=== PATIENT | female | born 1990 | race Caucasian/White ===

== ENCOUNTER 2017-10-05 05:41 | Inpatient (IN) ==
--- NOTE | 2017-10-04 21:31 | P.HPOB ---
History of Present Illness Service: Obstetrics Primary Care Physician: UNKNOWN Chief Complaint: scheduled primary for breech History of Present Illness: 26 yo G1 with de leon male IUP, EDC 10/12/17, admit 10/05/17 for scheduled due to breech presentation. Patient has had uncomplicated , GBS negative, normal anatomy, negative quad screen. Pain 2/10 mild pelvic pain and pressure. No LOF no VB. Endorses good FM. Weeks Gestation:: 39 Para: 0 : 1 Total # of Miscarriage(s): 0 Total # of Abortions (Spontaneous & Elective): 0 - Inpatient Certification I certify that the inpatient services were ordered in accordance with Medicare regulations governing the order. This includes certification that hospital inpatient services are reasonable and necessary and in the case of services not specified as inpatient-only under 42 CFR 419.22(n), that they are appropriately provided as inpatient services in accordance to with the 2-midnight benchmark under 43 CFR 412.3(e) Estimated Total Length of Stay (Days): 4 Plans for Post Hospital Care: Home Review of Systems All other systems reviewed negative except as stated in HPI PMFSH - Medical / Surgical Hx Neg / Unobtainable Medical Problems Denied: Yes Surgical History: No Previous Surgery - Family History Family History: Family History (Last Updated 10/04/17 @ 21:26 by Jacqueline Head MD) Other No significant family history - Tobacco History Second Hand Smoke Exposure: No Tobacco Use In Past 30 Days: No Smoking Status: Never smoker Medications and Allergies Allergies Allergy/AdvReac Type Severity Reaction Status Date / Time No Known Allergies Allergy Unverified 10/04/17 21:27 Exam - Constitutional no acute distress - Routine HEENT Exam Head: Present: normocephalic, atraumatic Eye: Present: EOMI, PERRL ENT: Present: mucous membranes moist - Routine Neck Exam Present: supple, full ROM - Routine Chest/Breast/Axilla Exam Chest wall: Absent: tenderness, mass - Routine Respiratory Exam Absent: accessory muscle use, respiratory distress - Routine Cardiovascular Exam Present: RRR. Absent: murmur - Routine Abdominal Exam Absent: tenderness Comments: size c/w dates - Routine Extremities Exam Absent: cyanosis, clubbing - Routine Skin Exam Present: intact. Absent: cyanosis - Routine Neurological Exam Present: alert, oriented X3 Results - Labs Group B Strep: Negative Caprini VTE Risk Assessment Caprini VTE Risk Assessment: No/Low Risk (score <= 1) VTE Pharmacological Exception Reason: Epidural catheter Caprini Risk Assessment Model: Point Value = 1 Point Value = 2 Point Value = 3 Point Value = 5 Age 41-60 Minor surgery BMI > 25 kg/m2 Swollen legs Varicose veins or History of unexplained or recurrent spontaneous Oral contraceptives or hormone replacement Sepsis (< 1 month) Serious lung disease, including pneumonia (< 1 month) Abnormal pulmonary function Acute myocardial infarction Congestive heart failure (< 1 month) History of inflammatory bowel disease Medical patient at bed rest Age 61-74 Arthroscopic surgery Major open surgery (> 45 min) Laparoscopic surgery (> 45 min) Malignancy Confined to bed (> 72 hours) Immobilizing plaster cast Central venous access Age >= 75 History of VTE Family history of VTE Factor V Leiden Prothrombin [id number] Lupus anticoagulant Anticardiolipin antibodies Elevated serum homocysteine Heparin-induced thrombocytopenia Other congenital or acquired thrombophilia Stroke (< 1 month) Elective arthroplasty Hip, pelvis, or leg fracture Acute spinal cord injury (< 1 month) Prophylaxis Regimen: Total Risk Factor Score Risk Level Prophylaxis Regimen 0-1 Low Early ambulation 2 Moderate Order ONE of the following: *Sequential Compression Device (SCD) *Heparin 5000 units SQ BID 3-4 Higher Order ONE of the following medications: *Heparin 5000 units SQ TID *Enoxaparin/Lovenox 40 mg SQ daily (WT < 150 kg, CrCl > 30 mL/min) *Enoxaparin/Lovenox 30 mg SQ daily (WT < 150 kg, CrCl > 10-29 mL/min) *Enoxaparin/Lovenox 30 mg SQ BID (WT < 150 kg, CrCl > 30 mL/min) AND/OR *Sequential Compression Device (SCD) 5 or more Highest Order ONE of the following medications: *Heparin 5000 units SQ TID (Preferred with Epidurals) *Enoxaparin/Lovenox 40 mg SQ daily (WT < 150 kg, CrCl > 30 mL/min) *Enoxaparin/Lovenox 30 mg SQ daily (WT < 150 kg, CrCl > 10-29 mL/min) *Enoxaparin/Lovenox 30 mg SQ BID (WT < 150 kg, CrCl > 30 mL/min) AND *Sequential Compression Device (SCD) Assessment and Plan - Diagnosis (1) Breech presentation Code(s): O32.1XX0 - Maternal care for breech presentation, not applicable or unspecified Status: Acute (2) Code(s): Z34.90 - Encounter for supervision of normal , unspecified, unspecified trimester Status: Acute - Plan 26 yo G1 with de leon male IUP at 39 wks, EDC 10/12/17, admit for scheduled due to breech. 1) breech, for primary CD: r/b/a of procedure d/w pt, AQA, consents signed; declines option of attempt at external cephalic version 2) GBS neg 3) status: AGA, male , breech 4) dispo: anticipate d/c to home 2-3 postop days (1) Breech presentation Qualifiers: Fetus number: single or unspecified fetus Qualified Code(s): O32.1XX0 - Maternal care for breech presentation, not applicable or unspecified (2) Qualifiers: Weeks of gestation: 39 weeks Qualified Code(s): Z3A.39 - 39 weeks gestation of
[2017-10-05] MEDS ORDERED: Citric Acid/Sodium Citrate Liq 30 ML UDC PO SCH (06:30)
[2017-10-05 06:35] LABS: Baso % (Auto) 0.3 % (0.0-2.0); Eos # (Auto) 0.1 th/mm3 (0.0-0.4); Eos % (Auto) 1.4 % (0.0-4.0); Hematocrit 37.2 % (35.0-46.0); Hemoglobin 12.4 gm/dL (11.6-15.3); Lymph # (Auto) 1.9 th/mm3 (1.0-4.8); Lymph % (Auto) 28.3 % (9.0-44.0); Mean Corpuscular HGB Conc 33.4 % (32.0-36.0); Mean Corpuscular Hemoglobin 28.8 pg (27.0-34.0); Mean Corpuscular Volume 86.2 fL (80.0-100.0); Mean Platelet Volume 11.7 fL (7.0-11.0); Mono # (Auto) 0.5 th/mm3 (0.0-0.9); Mono % (Auto) 8.1 % (0.0-8.0); Neut # (Auto) 4.1 th/mm3 (1.8-7.7); Neut % (Auto) 61.9 % (16.0-70.0); Platelet Count 153 th/mm3 (150-450); Red Blood Count 4.31 mil/mm3 (4.00-5.30); Red Cell Distribution Width 14.2 % (11.6-17.2); White Blood Count 6.6 th/mm3 (4.0-11.0)
[2017-10-05] MEDS ORDERED: ceFAZolin 2 GM Premix Inj 2 GM/50 ML PIGGYBACK IV.SIG PRN (06:45)
[2017-10-05] MEDS ORDERED: ceFAZolin Inj 2,000 MG in Sodium Chlor 0.9% Inj 80 ML IV.SIG SCH (07:00)
[2017-10-05] MEDS ORDERED: Morphine Sulfate PF Inj 5 MG/10 ML Ampul ONE (07:05)
[2017-10-05 07:12] LABS: Amphetamine Screen,Urine Neg (Neg); Barbiturate Screen,Urine Neg (Neg); Cannabinoid Screen,Urine Neg (Neg); Cocaine Screen,Urine Neg (Neg)
[2017-10-05 07:16] LABS: Opiate Screen,Urine Neg (Neg)
[2017-10-05 07:24] LABS: Bacteria,Urine Rare /hpf; Bilirubin,Urine Negative (Negative); Clarity,Urine Clear (Clear); Color,Urine Yellow (Yellw/Straw); Glucose,Urine (UA) Negative (Negative); Leukocyte Esterase,Urine Negative (Negative); Mucus,Urine Few /lpf (Occasional); Nitrite,Urine Negative (Negative); Specific Gravity,Urine 1.013 (1.002-1.035); Squamous Epithelial Cell,Urine 1 /hpf (0-5)
--- NOTE | 2017-10-05 08:21 | P.OBDELI ---
Procedure Note - Pre Op Diagnosis (1) Breech presentation (2) - Post Op Diagnosis (1) S/P primary low transverse (2) Breech presentation Performed by: Jacqueline Head MD Procedure: Primary Low Transverse Section Indication for Delivery: malposition (federico breech, engaged in pelvis) Informed Consent Obtained: For anesthesia, For procedure Confirmed Correct: Patient, Procedure, Site, Time-out taken Anesthesia: Spinal Medication Prior to Procedure: As documented in eMAR Monitoring During Procedure: Blood pressure monitoring, business practices officer, Pulse oximetry Urinary Catheter: Inserted using sterile technique, To dependent drainage, ml urine output (150) Sterile Preparation: Duraprep, In usual fashion, With drapes to expose affected area Position: Supine with wedge to right side - Operative Features Skin Incision: Pfannenstiel Uterine Incision: Low transverse w/knife / blunt ext Membranes Ruptured: Artificially, Amount of liquid (moderate), Appearance of fluid (clear) Presentation: Breech (federico breech) Status of : Viable, Cord blood, Nursery present Placenta Delivered: Intact Medications: Antibiotics (ancef 2 g IV preop) Estimated blood loss (mL): 500 Procedure Tolerated: Well Maternal Condition: Stable Baby Condition: Stable Procedure in Detail: see dictated op note for full details - : Male, Single Infant Male A Infant Delivery Date: 10/05/17 Delivery Time: 07:48 Weight: 3.165 kg (7#) Delivery of : Uneventful score (1 min): 9 score (5 min): 9
[2017-10-05] MEDS ORDERED: Senna/Docusate Sodium 8.6/50 MG Tablet PO PRN (08:22)
[2017-10-05] MEDS ORDERED: Acetaminophen 325 MG Tablet PO PRN (08:22)
[2017-10-05] MEDS ORDERED: Simethicone 80 MG Chew Tablet PO PRN (08:22)
[2017-10-05] MEDS ORDERED: Zolpidem Tartrate 5 MG Tablet PO PRN (08:22)
--- NOTE | 2017-10-05 08:40 | MP ---
cc: Jacqueline Head MD DATE OF OPERATION: 10/05/2017 PREOPERATIVE DIAGNOSES: 1. Zamora intrauterine at 39 weeks. 2. Federico breech presentation, declined attempt for external cephalic version. POSTOPERATIVE DIAGNOSES: 1. Zamora intrauterine at 39 weeks. 2. Federico breech presentation, declined attempt for external cephalic version. 3. Postoperative day number 0. INDICATION FOR PROCEDURE: Tila Oliva is a 26-year-old, now para 1, who was seen and evaluated throughout the office with findings of a fetus in a federico breech presentation with rump engaged at around 34 weeks. Due to these findings, the patient was counseled. She declined attempt at external cephalic version and desired primary for breech presentation. PROCEDURE PERFORMED: Primary low transverse delivery. SURGEON: Jacqueline Head MD TYPE OF ANESTHESIA: Spinal. ESTIMATED BLOOD LOSS: 500 mL. IV FLUID REPLACEMENT: 1000 mL. URINE OUTPUT: 150 mL of clear urine draining in the Walter bag at the end of the procedure. SPECIMENS: None. INTRAOPERATIVE FINDINGS: Including a vigorous viable male in federico breech presentation. Apgars of 9 and 9. weight was 7 pounds. Amniotic fluid was clear. The uterus, bilateral fallopian tubes and ovaries were within normal limits. COMPLICATIONS: None. COUNTS: Sponge, lap, instrument and needle correct x 2 at the conclusion of the procedure. PROPHYLAXIS: Ancef 2 grams IV was given preoperatively and SCDs were on and functioning throughout the entire case. DESCRIPTION OF PROCEDURE: After reviewing the informed consent, the patient was taken to the operating suite, where a timeout was performed to identify the patient, the planned procedure and any known allergies to drugs or drug products. The patient was placed sitting up on the exam table and spinal anesthesia was administered without difficulty and found to be adequate. The patient was then laid in dorsal supine position with a bump under her right side and abdomen and perineum were prepped and draped in normal sterile fashion. A Walter catheter was placed using sterile technique. Attention was turned abdominally, where a Pfannenstiel skin incision was made with the scalpel and carried down to the underlying layer of fascia with the Bovie. The fascia was incised in the midline. Incision was extended sharply using Oliveros scissors. Superior aspect of the fascial incision was elevated with Rin clamps and rectus muscles were dissected off sharply with Oliveros scissors. Rin was then moved to the inferior aspect of the fascial edge and rectus muscles were again dissected off sharply with Oliveros scissors. The rectus muscles were then in the midline. Peritoneum was identified, elevated with hemostat, entered sharply with Metzenbaum scissors. Incision was extended with good visualization of abdominal contents. Bladder blade was placed. A bladder flap was made using pickups and Metzenbaums. The bladder blade was then replaced. A low transverse uterine incision was made with the scalpel. The rump was immediately visible upon entry into the uterine cavity. It was grasped, elevated out through the incision, the left leg was then gently swept across the abdomen and delivered, and then the right leg was gently swept across the abdomen and delivered. The infant was wrapped in a moist warm towel, turned to maternal left and infant's right arm was swept across the abdomen for delivery. was then turned to maternal right and the left arm was then swept across the chest for delivery. Using gentle fundal pressure and flexion of scalp, the head easily delivered. Infant was immediately crying upon delivery. Nursery was present. Nose and mouth were suctioned with bulb suction. Delayed cord clamping of 45 seconds was performed. Cord was then clamped and cut. Infant was handed off to the awaiting nursery staff. Cord blood sample was taken. Placenta delivered spontaneously with gentle cord traction and fundal massage. Uterus was exteriorized, cleared of all clots and debris with sterile moist lap sponges. Hysterotomy was repaired in a double-layer, first a running locked layer, then in an imbricating layer with #1 chromic. The posterior cul-de-sac was irrigated copiously. Uterus was returned to the abdomen. Additional irrigation with suction was performed. A layer of Interceed was placed over the repaired hysterotomy to act as an adhesion barrier. Peritoneum was then closed in a running layer with 2-0 chromic. The fascia was closed in a running layer with #1 Vicryl. Subcutaneous tissue was irrigated copiously with warm sterile saline and skin was closed in a subcuticular fashion with 3-0 Monocryl. The skin was cleaned and dried. Steri-Strips and a standard dressing were placed. Procedure concluded at this point. DISPOSITION: The patient is resting with her in the postanesthesia care unit. Her estimated length of stay is 2-3 postoperative days. Infant is nursery status. MD NATHANIEL Cruz/ARIANA , 08:16 AM , 08:39 AM JAIR
[2017-10-05] MEDS ORDERED: Oxytocin 30 Units/500ml Premix 30 UNITS/500 ML BAG IV.SIG ONE (09:00)
[2017-10-05] MEDS ORDERED: Naloxone Inj 0.4 MG/ML Vial IV.PUSH PRN (09:46)
[2017-10-05] MEDS ORDERED: Prenatal Vit/Ca/Iron/Folic Acid Tablet PO SCH (10:00)
[2017-10-05] MEDS ORDERED: Oxytocin 30 Units/500ml Premix 30 UNITS/500 ML BAG IV.SIG PRN (13:22)
[2017-10-05] MEDS: Ibuprofen 600 MG Tablet PO PRN (18:43)
[2017-10-06] MEDS: Ibuprofen 600 MG Tablet PO PRN ×3 (03:08→23:31)
[2017-10-06 05:59] LABS: Baso % (Auto) 0.1 % (0.0-2.0); Eos % (Auto) 0.2 % (0.0-4.0); Hematocrit 36.4 % (35.0-46.0); Lymph # (Auto) 1.3 th/mm3 (1.0-4.8); Lymph % (Auto) 9.9 % (9.0-44.0); Mean Corpuscular HGB Conc 32.9 % (32.0-36.0); Mean Corpuscular Hemoglobin 28.8 pg (27.0-34.0); Mean Corpuscular Volume 87.5 fL (80.0-100.0); Mean Platelet Volume 11.5 fL (7.0-11.0); Mono # (Auto) 0.5 th/mm3 (0.0-0.9); Neut # (Auto) 11.3 th/mm3 (1.8-7.7); Neut % (Auto) 85.8 % (16.0-70.0); Platelet Count 160 th/mm3 (150-450); Red Blood Count 4.16 mil/mm3 (4.00-5.30); Red Cell Distribution Width 14.1 % (11.6-17.2); White Blood Count 13.1 th/mm3 (4.0-11.0)
--- NOTE | 2017-10-06 07:21 | P.PNOB ---
Subjective Post op day: 1 Interval history: doing well, pain controlled, TPO, no N/V, VB = menses, ambulating, no sn/sx of anemia, voiding w/o difficulty. Objective Vital Signs/I&O: Vital Signs 10/05/17 08:15 10/05/17 08:30 10/05/17 08:45 Temperature 97.9 F Pulse Rate 74 75 71 Respiratory Rate 16 16 16 Blood Pressure 93/48 L 111/57 L 109/58 L 10/05/17 09:00 10/05/17 09:41 10/05/17 17:22 Temperature 97.6 F 98.0 F 97.9 F Pulse Rate 72 72 104 H Respiratory Rate 16 18 16 Blood Pressure 112/65 112/60 102/69 10/05/17 20:00 10/05/17 23:52 10/06/17 03:31 Temperature 97.6 F 97.6 F 97.8 F Pulse Rate 74 75 75 Respiratory Rate 17 17 18 Blood Pressure 106/69 85/63 L 98/62 L Result Diagrams: 10/06/17 05:07 Objective Remarks: GENERAL: Well-nourished, well-developed patient. CARDIOVASCULAR: Regular rate and rhythm without murmurs, gallops, or rubs. RESPIRATORY: Breath sounds equal bilaterally. No accessory muscle use. ABDOMEN/GI: Abdomen soft, non-tender, bowel sounds present. bandage: Clean, dry and intact. Fundus: Firm, non-tender at umbilicus. GENITOURINARY: Light to moderate bleeding. EXTREMITIES: No cyanosis or edema, non-tender, without signs of DVT. Medications and IVs: Active Medications Acetaminophen (Tylenol) 650 mg PO Q6H PRN PRN Reason: PAIN SCALE 1 TO 2 Diphenhydramine HCl (Benadryl) 50 mg PO Q6H PRN PRN Reason: MILD TO MODERATE ITCHING Stop: 10/06/17 09:45 Diphenhydramine HCl (Benadryl Inj) 25 mg IV.PUSH Q6H PRN PRN Reason: MILD TO MODERATE ITCHING Stop: 10/06/17 09:45 Diphtheria/Pertussis/Tetanus Vacc (Boostrix Vaccine Inj) 0.5 ml IM .ONCE ONE Stop: 10/06/17 16:01 Lactated Ringer's (Lr 1000 Ml Inj) 1,000 mls @ 100 mls/hr IV.CONT .Q10H SIMON Stop: 10/06/17 09:21 Oxytocin (Pitocin 30 Units/Ns 500 Ml Premix) 30 units in 500 mls @ 100 mls/hr IV.SIG UNSCH X1 PRN PRN Reason: Heavy bleeding Stop: 10/06/17 13:21 Ibuprofen (Motrin) 600 mg PO Q6H PRN PRN Reason: cramping Last Admin: 10/06/17 03:08 Dose: 600 mg Measles/Mumps/Rubella Vaccine Live (M-M-R Ii Vaccine Inj) 0.5 ml SQ .ONCE ONE Stop: 10/06/17 16:01 Miscellaneous Information ([facility]) 1 each OTHER UNSCH PRN PRN Reason: SEE LABEL COMMENTS Stop: 10/06/17 09:45 Miscellaneous Information ([facility]) 1 each OTHER UNSCH PRN PRN Reason: SEE LABEL COMMENTS Stop: 10/06/17 09:45 Naloxone HCl (Narcan Inj) 0.4 mg IV.PUSH UNSCH PRN PRN Reason: SEE LABEL COMMENTS Stop: 10/06/17 09:45 Ondansetron HCl (Zofran Odt) 4 mg PO Q6H PRN PRN Reason: NAUSEA OR VOMITING Oxycodone/Acetaminophen (Percocet 5/325 Mg) 1 tab PO Q4H PRN PRN Reason: PAIN SCALE 3 TO 5 Last Admin: 10/06/17 03:06 Dose: 1 tab Oxycodone/Acetaminophen (Percocet 5/325 Mg) 2 tab PO Q4H PRN PRN Reason: PAIN SCALE 6 TO 10 Vit/Calcium/Iron/Folic Ac (Stuartnatal Plus 3) 1 tab PO DAILY SIMON Senna/Docusate Sodium (Cherri-Colace) 2 tab PO Q12H PRN PRN Reason: CONSTIPATION Last Admin: 10/05/17 18:42 Dose: 2 tab Simethicone (Mylicon Chew) 80 mg PO QID PRN PRN Reason: FLATULENCE Sodium Chloride (Ns Flush) 2 ml IV.FLUSH BID SIMON Sodium Chloride (Ns Flush) 2 ml IV.FLUSH UNSCH PRN PRN Reason: FLUSH AFTER USING IV ACCESS Zolpidem Tartrate (Ambien) 5 mg PO HS PRN PRN Reason: INSOMNIA Assessment and Plan - Diagnosis (1) Breech presentation Code(s): O32.1XX0 - Maternal care for breech presentation, not applicable or unspecified Status: Acute (2) Code(s): Z34.90 - Encounter for supervision of normal , unspecified, unspecified trimester Status: Acute - Plan 26 yo s/p PLTCS at 39w for malpresentation 1. PPD #1: AF, VSS, AM Hb appropriate, continue routine post op / PP care, anticipate d/c home in next 48hrs. - Male, desires circ, likely do tomorrow or later today. with de leon male IUP at 39 wks, EDC 10/12/17, admit for scheduled due to breech. - Queried patient in PDMP and no matching patient identified (1) Breech presentation Qualifiers: Fetus number: single or unspecified fetus Qualified Code(s): O32.1XX0 - Maternal care for breech presentation, not applicable or unspecified (2) Qualifiers: Weeks of gestation: 39 weeks Qualified Code(s): Z3A.39 - 39 weeks gestation of
[2017-10-06] MEDS ORDERED: Diphtheria/Tetanus/Pertussis Vaccine Inj 0.5 ML Syringe IM ONE (16:00)
[2017-10-06] MEDS ORDERED: Measles/Mumps/Rubella Vaccine Inj 0.5 ML Vial SQ ONE (16:00)
[2017-10-07] MEDS: Ibuprofen 600 MG Tablet PO PRN ×2 (08:31→16:36)
--- NOTE | 2017-10-07 09:18 | P.PNOB ---
Subjective Post op day: 2 Objective Vital Signs/I&O: Vital Signs 10/06/17 12:00 10/06/17 20:00 10/07/17 08:00 Temperature 97.6 F 98.3 F 97.8 F Pulse Rate 87 87 80 Respiratory Rate 18 18 Blood Pressure 108/67 100/65 112/69 Result Diagrams: 10/06/17 05:07 Objective Remarks: GENERAL: Well-nourished, well-developed patient. CARDIOVASCULAR: Regular rate and rhythm without murmurs, gallops, or rubs. RESPIRATORY: Breath sounds equal bilaterally. No accessory muscle use. ABDOMEN/GI: Abdomen soft, non-tender, bowel sounds present. Incision: steri strips Clean, dry and intact. Fundus: Firm, non-tender at umbilicus. GENITOURINARY: Light to moderate bleeding. EXTREMITIES: No cyanosis or edema, non-tender, without signs of DVT. Medications and IVs: Active Medications Acetaminophen (Tylenol) 650 mg PO Q6H PRN PRN Reason: PAIN SCALE 1 TO 2 Ibuprofen (Motrin) 600 mg PO Q6H PRN PRN Reason: cramping Last Admin: 10/07/17 08:31 Dose: 600 mg Ondansetron HCl (Zofran Odt) 4 mg PO Q6H PRN PRN Reason: NAUSEA OR VOMITING Oxycodone/Acetaminophen (Percocet 5/325 Mg) 1 tab PO Q4H PRN PRN Reason: PAIN SCALE 3 TO 5 Last Admin: 10/07/17 00:12 Dose: 1 tab Oxycodone/Acetaminophen (Percocet 5/325 Mg) 2 tab PO Q4H PRN PRN Reason: PAIN SCALE 6 TO 10 Vit/Calcium/Iron/Folic Ac (Stuartnatal Plus 3) 1 tab PO DAILY SIMON Last Admin: 10/06/17 12:18 Dose: Not Given Senna/Docusate Sodium (Cherri-Colace) 2 tab PO Q12H PRN PRN Reason: CONSTIPATION Last Admin: 10/05/17 18:42 Dose: 2 tab Simethicone (Mylicon Chew) 80 mg PO QID PRN PRN Reason: FLATULENCE Sodium Chloride (Ns Flush) 2 ml IV.FLUSH BID SIMON Sodium Chloride (Ns Flush) 2 ml IV.FLUSH UNSCH PRN PRN Reason: FLUSH AFTER USING IV ACCESS Zolpidem Tartrate (Ambien) 5 mg PO HS PRN PRN Reason: INSOMNIA Assessment and Plan - Plan 26 yo s/p PLTCS at 39w for malpresentation POD #2 pt doing well pain well managed with oral pain medication wanting to go home routine care Discharge Planning: dc home today
== END 2017-10-08 09:30 | disposition home or self-care (01) ==
LOC: H2E 05:41 → H1EA 09:28
PROVIDERS: ADMIT Obstetrics & Gynecology; ATTEND Obstetrics & Gynecology